=== PATIENT | male | born 1975 | race Caucasian/White ===

== ENCOUNTER 2016-08-13 19:21 | Emergency (ER) | payer SELFPAY ==
[~2016-08-13] VITALS: Ht 182.9 cm; Wt 102.1 kg
[2016-08-13] MEDS ORDERED: LIPITOR20 MG PO (20:07)
[2016-08-13] MEDS ORDERED: GLUCOPHAGE500 MG PO (20:07)
[2016-08-13] MEDS ORDERED: GLUCOTROL5 MG PO (20:08)
== END 2016-08-13 20:45 | disposition short-term general hospital (02) ==
LOC: ER 19:22
DX: S00.93XA Contusion of unspecified part of head, initial encounter (principal); F17.210 Nicotine dependence, cigarettes, uncomplicated; Z91.040 Latex allergy status; Z88.8 Allergy status to other drugs, medicaments and biological substances; Z79.84 Long term (current) use of oral hypoglycemic drugs; W22.8XXA Striking against or struck by other objects, initial encounter